=== PATIENT | female | born 1955 | race Caucasian/White ===

== ENCOUNTER 2020-03-27 12:40 | Emergency (ER) | payer MEDICARE, BC ==
[~2020-03-27] VITALS: Ht 170.2 cm; Wt 79.5 kg
[~2020-03-27 12:40] MED LIST: CYMBALTA60 MG PO; ESTRACE 0.5 MG0.5 MG PO; KLONOPIN1 MG PO; PERCOCET 10-321 EAC1 PO; PROVERA2.5 MG PO; SYNTHROID75 MCG PO; ZANTAC150 MG PO
[2020-03-27 12:45] VITALS: Ht 170.2 cm; Wt 79.5 kg
[2020-03-27] MEDS ORDERED: OMEPRAZOLE40 MG PO (13:04)
[2020-03-27 13:54] LABS: HEMATOCRIT 30.3 % (36.0-48.0); HEMOGLOBIN 10.5 g/dL (12-16); MCH 28.7 pg (26.0-34.0); MCHC 34.7 g/dL (31.0-37.0); MCV 82.8 fL (80.0-100.0); MEAN PLATELET VOLUME 9.5 fL (7.4-10.4); PLATELET COUNT 145 10x3/uL (130-400); RBC 3.66 10x6/uL (4.00-5.40); RDW 12.9 % (11.5-14.5); WBC 2.8 10x3/uL (4.8-10.8)
[2020-03-27 14:11] LABS: ALBUMIN 5.3 g/dL (3.4-5.0); BILIRUBIN - TOTAL 1.06 mg/dL (0.2-1.3); CALCIUM 9.1 mg/dL (8.5-10.1); CARBON DIOXIDE 26.1 mmol/L (21.0-32.0); CREATININE - SERUM 0.9 mg/dL (0.6-1.3); POTASSIUM - SERUM 3.2 mmol/L (3.5-5.1); PROTEIN - SERUM 8.5 g/dL (6.4-8.2)
[2020-03-27 14:22] LABS: ANION GAP 14.1 mmol/L (8-16)
[2020-03-27 14:49] LABS: LYMPHOCYTES 22 % (15-50); MONOCYTES 13 % (2-11); NEUTROPHILS 65 % (40-80); PLATELET ESTIMATE NORMAL
[2020-03-27 17:15] VITALS: BP 152/78
== END 2020-03-27 17:15 | disposition home or self-care (01) ==
LOC: D.ER 12:40
PROVIDERS: Family Medicine
DX: G43.909 Migraine, unspecified, not intractable, without status migrainosus (principal); G89.29 Other chronic pain; E87.6 Hypokalemia; E87.1 Hypo-osmolality and hyponatremia; I20.9 Angina pectoris, unspecified; J45.909 Unspecified asthma, uncomplicated; I34.1 Nonrheumatic mitral (valve) prolapse